=== PATIENT | female | born 1965 | race Caucasian/White ===

== ENCOUNTER 2024-10-07 20:33 | Observation (INO) ==
--- NOTE | 2024-10-07 20:56 | Emergency Department Note ---
HPI - Chest Pain General Chief Complaint: SOB -Shortness of Breath Stated Complaint: SHORTNESS OF BREATH Time Seen by Provider: 10/07/24 20:35 Source: patient Mode of arrival: ambulance Limitations: no limitations History of Present Illness HPI narrative: 59-year-old female presents to the ED this evening, via EMS, with a 2- day history of chest pain and shortness of breath. Pain is described as 8 out o f 10 on pain scale, constant, "feels like an elephant sitting on my chest", further described as stabbing, throbbing and pressure. Patient states her pain is worse when laying down and when stressed, better with nothing. Patient states she was out of town in [place] visiting friends when the pain started, but states she did not want a go to the hospital there. Associated symptoms include nausea and headache. Patient denies vomiting, diaphoresis, diarrhea, body aches, cough, nasal congestion, sore throat, abdominal pain, urinary complaints. MD complaint: Reports chest pain Pertinent past history: Reports other (CHF) Onset (ago): day(s) (2) Timing of current episode: Reports constant and increasing Prior episodes: Yes Onset: Reports during rest Pain location: Reports substernal and left chest Pain radiation: Reports none Severity: moderate-severe Context: Reports recent travel ([place], returned today); Denies recent illness, recent surgery, recent immobilization, trauma/injury, new medications, history of DVT/PE or non compliance with medication Associated symptoms: Reports nausea and dyspnea; Denies vomiting, diaphoresis, palpitations, fever, cough or leg swelling Treatment prior to arrival: Reports none Risk Factors Coronary artery disease risk factors: Reports diabetes and hypertension Thoracic aortic dissection risk factors: Reports none Pulmonary embolism risk factors: Reports none Related Data On Oral Contraceptives: No Home Medications Medication Instructions Recorded Confirmed carvedilol 6.25 mg tablet 6.25 mg PO Q12H 07/25/24 08/25/24 hydroxyzine HCl 50 mg tablet 50 mg PO BEDTIME PRN sleep 07/25/24 08/25/24 insulin lispro 100 unit/mL 5 unit subcut TID 07/25/24 08/25/24 subcutaneous cartridge (Humalog U-100 Insulin) losartan 100 mg tablet 100 mg PO DAILY 07/25/24 08/25/24 omeprazole 40 mg capsule,delayed 40 mg PO DAILY 07/25/24 08/25/24 release spironolactone 25 mg tablet 25 mg PO Q12H 07/25/24 08/25/24 Previous Rx's Medication Instructions Recorded amlodipine 10 mg tablet (Norvasc) 10 mg PO BEDTIME htn #30 tabs 07/28/24 hydralazine 25 mg tablet 25 mg PO BID htn #60 tabs 07/28/24 Allergies Allergy/AdvReac Type Severity Reaction Status Date / Time semaglutide (From Ozempic) Allergy Mild Verified 10/07/24 21:25 codeine Allergy Unknown Verified 08/25/24 22:20 diazepam (From Valium) Allergy Unknown Verified 08/25/24 22:20 fentanyl Allergy Unknown Verified 08/25/24 22:20 meperidine (From Demerol) Allergy Unknown Verified 08/25/24 22:20 metformin Allergy Unknown Verified 08/25/24 22:20 Sulfa (Sulfonamide Allergy Unknown Verified 08/25/24 22:20 Antibiotics) Review of Systems Status of ROS 10 or more systems reviewed and unremark able except as noted in history and below Constitutional Reports: fatigue; Denies: fever or chills Eyes Denies: change in vision, eye discomfort or eye discharge Ears, nose, mouth, and throat Denies: throat pain, neck pain, throat swelling, difficulty swallowing, hoarseness, ear pain or nasal congestion Cardiovascular Reports: chest pain, swelling of feet/ankles, shortness of breath with exertion and shortness of breath when lying down; Denies: palpitations, edema or lightheadedness Respiratory Reports: shortness of breath; Denies: cough, wheezing, pain on inspiration or chest congestion Gastrointestinal Reports: nausea; Denies: abdominal pain, vomiting, diarrhea or blood in stool Genitourinary Denies: painful urination, urinary frequency, urinary urgency, blood in urine, difficulty voiding, decreased urine ouput or pelvic pain Musculoskeletal Denies: back pain, neck pain, extremity pain, extremity swelling or limited range of motion Integumentary/Breast Denies: rash, itching, changes in skin color or jaundice Neurological Reports: headache; Denies: numbness in extremities, weakness in extremities, lack of coordination, dizziness or difficulty communicating thoughts Psychiatric Reports: anxiety and difficulty concentrating Endocrine Denies: excessive urination or excessive thirst Hematologic/Lymphatic Denies: easy bruising or easy bleeding Allergic/Immunologic Denies: hives, throat swelling, tongue swelling or facial swelling Exam Constitutional: abnormal general appearance (disheveled) and (chronically ill), no apparent distress, abnormal body habitus (overweight), no limitations and alert Vital Signs - 24 hr 10/07/24 20:40 10/07/24 20:40 10/07/24 21:07 Temperature 98.4 F Pulse Rate 75 Respiratory Rate 24 Blood Pressure 242/102 222/83 Pulse Oximetry 99 99 Oxygen Delivery Me thod Room Air Nasal Cannula Oxygen Flow Rate 2 10/07/24 21:29 10/07/24 21:34 10/07/24 22:43 Temperature Pulse Rate Respiratory Rate Blood Pressure 222/84 179/99 234/84 Pulse Oximetry Oxygen Delivery Me thod Oxygen Flow Rate 10/08/24 00:31 Temperature Pulse Rate Respiratory Rate Blood Pressure 217/87 Pulse Oximetry Oxygen Delivery Me thod Oxygen Flow Rate HENMT: normocephalic, head/scalp atraumatic, hearing grossly normal bilaterally, external ears normal, nasal mucous membranes normal, external nose normal, oral mucous membranes normal and oropharynx normal Eyes: PERRL, EOMs intact bilaterally, conjunctivae normal, no scleral icterus, alignment normal and periorbital findings normal Neck/C-Spine: visual inspection normal, trachea midline, cervical spine nontender, cervical full ROM noted and supple Lymph: no lymphadenopathy noted Chest: inspection of chest normal and palpation of chest normal Respiratory: breath sounds equal bilaterally, normal respiratory effort, auscultation abnormal (diminished breath sound) (bilateral bases), wheezing noted and use of accessory muscles noted Cardiovascular: normal heart rate noted and regular rhythm noted Gastrointestinal: abdomen normal to inspection, abdomen soft to palpation, no ntender to palpation, nondistended, normoactive bowel sounds, no hepatosplenomegaly and no masses Genitourinary: no CVA tenderness and bladder normal to palpation Back/Pelvis: spine normal to inspection, no thoracic spine tenderness, no lumbar spine tenderness, thoracic spine ROM normal and lumbar spine ROM normal Extremities: abnormal to inspection (+2 bilateral pitting edema), normal to palpation, no tenderness, full ROM and no deformity Neurology: no movement abnormality noted, no focal motor deficit noted, no sensory deficits noted, gait normal, speech normal, coordination normal and GCS normal Psychiatry: mental status grossly normal, oriented x3, thought process normal, cooperative and affect normal Skin: skin color normal, no rash, no ecchymosis noted, no lacerations, skin turgor normal and no jaundice Course Vital Signs Vital signs: Vital Signs Temperature 98.4 F 10/07/24 20:40 Pulse Rate 75 10/07/24 20:40 Respiratory Rate 24 10/07/24 20:40 Blood Pressure 242/102 10/07/24 20:40 Pulse Oximetry 99 10/07/24 20:40 Oxygen Delivery Method Room Air 10/07/24 20:40 Oxygen Flow Rate 2 10/07/24 20:40 Temperature 98.4 F 10/07/24 20:40 Pulse Rate 75 10/07/24 20:40 Respiratory Rate 24 10/07/24 20:40 Blood Pressure 217/87 10/08/24 00:31 Pulse Oximetry 99 10/07/24 20:40 Oxygen Delivery Method Nasal Cannula 10/07/24 20:40 Oxygen Flow Rate 2 10/07/24 20:40 MDM - Chest Pain MDM Narrative Medical decision making narrative: CBC within normal limits except for RBC 3.9L, hemoglobin 10.8 L, hematocrit 30 2.4L, MCH 20 7.5L, RDW 15.4 H. CMP is within normal limits except for BUN is 34H, creatinine 2.2H, EGFR 20 5.2L, glucose 3 77H, albumin 2.0L. Magnesium is low at 1.7L. Phos is within normal limits at 3.8.Lipase is within normal limits. BNP is elevated at 390 6.0H. Initial CPK and troponin are 82 and 14.10 respectively (within normal limits). 3-hour repeat CPK and troponin are 92 and 18.60 respectively (within normal limits). D-dimer is elevated at 717H (likely related to pt's CKD). Urinalysis is within normal limits except for 3+ protein, 4+ glucose, trace occult blood, 5-10 RBCs, few amorphous sediment. Urine drug screen is negative. CXR - no acute cardiopulmonary process. EKG is without evidence of acute ischemia. While in ED, patient received 324 mg p.o. aspirin, 4 mg IV morphine, 4 mg IV Zofran, 3 doses of 0.4 mg sublingual nitro, 40 mg IV Lasix, 2 doses of hydralazine 10 mg IV and 1 inch Nitropaste. BP still remains elevated with SBP > 200. CP has improved form 8 to 3. I have discussed the clinical case, including pertinent positives and negatives with Rashida (utilization review), and the need for further testing/observation in the inpatient arena. I have made the patient aware of the current disposition plan and she is in agreement. Will admit to observation status for hypertensive crisis, chest pain, dyspnea, anemia, nausea, headache, diabetes with hyp erglycemia, elevated D-dimer (likely related to patient's chronic kidney disease) and hypomagnesemia. Differential Diagnosis Differential diagnosis: Likely stable angina, unstable angina pectoris, atypical chest pain, st elevation myocardial infarction, costochondritis, chest pain, biliary colic and other (CHF, pneumonia) Medical Records Data Attestation: I reviewed the patient's medical records. Lab Data Attestation: I reviewed the patient's lab results. Labs: Lab Results 10/07/24 10/07/24 10/08/24 Range/Units 21:12 21:25 00:30 WBC 8.1 (4.3-9.3) K/uL RBC 3.9 L (4.00-5.50) M/uL Hgb 10.8 L (12.5-15.8) gm/dL Hct 32.4 L (35.9-46.7) % MCV 82.6 (81.0-93.7) fl MCH 27.5 L (27.6-32.2) pg MCHC 33.3 (33.1-35.3) g/dl RDW 15.4 H (11.4-14.2) % Plt Count 231 (152-353) K/uL MPV 9.1 (6.9-10.8) fl Gran % 69.6 (47.8-71.3) % Lymph % (Auto) 22.8 (20.0-43.0) % [place] % (Auto) 5.6 (3.6-9.8) % Eos % (Auto) 1.4 (0.4-2.8) % Baso % (Auto) 0.6 (0.1-0.85) Lymph # (Auto) 1.8 (1.1-3.1) [place] # (Auto) 0.5 L (1.1-3.1) Eos # (Auto) 0.1 (0.0-0.2) Baso # (Auto) 0.1 (0.0-0.1) Absolute Gran (auto) 5.6 (2.3-6.0) D-Dimer 717 H (100-600) ng/mL Sodium 137 (136-145) mmol/L Potassium 4.4 (3.6-5.2) mmol/L Chloride 100.0 (98-107) mmol/L Carbon Dioxide 28 (21-32) mmol/L Anion Gap 9.0 (4-14) mEq/L BUN 34 H (7-18) mg/dL Creatinine 2.2 H (0.6-1.3) mg/dL Estimated GFR 25.2 (>59.9) Glucose 377 H (70-110) mg/dL Calcium 8.5 (8.5-10.1) mg/dL Phosphorus 3.8 (2.5-4.9) mg/dL Magnesium 1.7 L (1.8-2.4) mg/dL Total Bilirubin 0.24 (0.0-1.0) mg/dL AST 8 L (15-37) U/L ALT 14 L (30-65) U/L Alkaline Phosphatase 57 (50-136) U/L Total Creatine Kinase 82 92 (26-192) U/L Troponin I High Sens 14.10 18.60 (4.0-60.4) ng/L B-Natriuretic Peptide 396.0 H (0-100) pg/mL Total Protein 6.4 (6.4-8.2) g/dL Albumin 2.0 L (3.4-5.0) g/dL Lipase 61.0 (16.0-77.0) U/L Urine Color Yellow (STRAW/YELL.) Urine Appearance Clear (CLEAR) Ur Specific [place] 1.015 (1.001-1.035) Urine Protein 3+ (NEGATIVE) Urine Glucose (UA) 4+ (NORMAL) Urine Ketones Negative (NEGATIVE) Urine Occult Blood Trace (NEG - TRACE) Urine Nitrite Negative (NEGATIVE) Urine Bilirubin Negative (NEGATIVE) Urine Urobilinogen Normal (NORMAL) Ur Leukocyte Esterase Negative (NEGATIVE) Urine RBC 5 - 10 (0 - 5) Urine WBC Negative ( 0 - 5) Ur Epithelial Cells Rare (Few/HPF) Amorphous Sediment Few (Negative) Urine Bacteria Negative (Negative) Urine Mucus Negative (Negative) Urine Trichomonas Negative (Negative) Urine Yeast Negative (Negative) Fluid pH 8.0 (5 - 9) Urine Opiates Screen Neg. (NEGATIVE) Urine Methadone Screen Neg. (NEGATIVE) Barbiturate Screen Neg. (NEGATIVE) Ur Phencyclidine Scrn Neg. (NEGATIVE) Amphetamines Screen Neg. (NEGATIVE) U Benzodiazepines Scrn Neg. (NEGATIVE) Urine Cocaine Screen Neg. (NEGATIVE) U Marijuana (THC) Screen Neg. (NEGATIVE) Imaging Data Imaging ordered: Chest x-ray Attestation: I personally reviewed and interpreted this imaging study as follows: My impression: No acute cardiopulmonary process ECG Data Attestation: I personally reviewed and interpreted this ECG as follows: ECG interpretation date: 10/07/24 ECG interpretation time: 20:45 Prior ECG tracings: not available for review Interpretation: Normal sinus rhythm Rate 74 RR 812 Normal P waves Normal ELISEO Left ventricular hypertrophy Anterior Q waves, possibly due to left ventricular hypertrophy, Nonspecific ST-T wave changes Critical Care Time Critical Care Time Total Critical Care Time: 80 Attestation: Chest pain and dyspnea workup to include chest x-ray, EKG, CBC, CMP, lipase, initial and repeat CPK and troponin, BNP, D-dimer, UA, urine drug screen. While patient in ED she received 324 mg p.o. aspirin, 4 mg IV morphine, 4 mg IV Zofran, 3 doses of 0.4 sublingual nitro, 40 mg IV Lasix, 2 doses of hydralazine 10 mg IV and 1in nitro paste. Arrangement for admission for hypertensive crisis as blood pressure still remains elevated at 203/69 with a heart rate of 73. Multiple updates with patient. Discharge Plan Discharge Patient Disposition: Admitted As Observation Condition: Improved Chief Complaint: SOB -Shortness of Breath Clinical Impression: Hypertensive crisis, Anemia, Hypomagnesemia, Chest pain, Acute dyspnea, Nausea, Headache, Diabetes mellitus with hyperglycemia, Elevated d-dimer, Chronic kidney disease Prescriptions: No Action losartan 100 mg tablet 100 mg PO DAILY Patient Comments: TAKE 1 TABLET BY MOUTH ONCE A DAY carvedilol 6.25 mg tablet 6.25 mg PO Q12H Patient Comments: TAKE 1 TABLET BY MOUTH TWICE DAILY hydroxyzine HCl 50 mg tablet 50 mg PO BEDTIME PRN (Reason: sleep) Patient Comments: TAKE 1 TABLET BY MOUTH DAILY AT BEDTIME NEEDED FOR SLEEP omeprazole 40 mg capsule,delayed release(/EC) 40 mg PO DAILY Patient Comments: TAKE 1 CAPSULE BY MOUTH DAILY 30 MINUTES BEFORE BREAKFAST spironolactone 25 mg tablet 25 mg PO Q12H Patient Comments: TAKE 1 TABLET BY MOUTH TWICE DAILY Humalog U-100 Insulin 100 unit/mL cartridge 5 unit subcut TID Rx Instructions: INJECT 5 UNITS BEFORE MEALS THREE TIMES DAILY amlodipine [Norvasc] 10 mg tablet 10 mg PO BEDTIME Qty: 30 0RF hydralazine 25 mg tablet 25 mg PO BID Qty: 60 0RF Print Language: Pashto Referrals: [facility] [Other] Time of Disposition: 02:00 [facility] Medical History Insomnia GERD (gastroesophageal reflux disease) Elevated d-dimer Chest pain Acute worsening of stage 4 chronic kidney disease CHF (congestive heart failure), NYHA class II Pulmonary HTN Costochondritis Hypertensive urgency CHF (congestive heart failure) Anxiety Depression Hypertension Diabetes mellitus Surgical History History of placement of ear tubes H/O neck surgery History of tonsillectomy History of Social History Smoking status: never smoker Within the past year, how often did you have a drink containing alcohol: never Within the past year, how often did you have six or more drinks on one occasion: never Score interpretation: A score less than 3 is consistent with normal alcohol consumption. Non-prescribed substance use: denies use What is your current living situation: I presently have a place to live Problems where you live: no known problems In the past 12 months, utilities in danger of being shut off: no In past 12 months, lack of transportation kept you from medical appts, meetings, work, or getting things needed for daily living: No How hard is it for you to pay for the very basics like food, housing, medical care, and heating: decline to answer Past 12 mos, fear food will run out before able to buy more: never true In past 12 months, food didn't last until money to buy more: never true Are you following a diet prescribed by a doctor: No Are you following a special diet: No Do you want help finding or keeping work or a job: I do not need or want help Known occupational exposures/hazards: No Highest level of school completed/degree received: decline to answer Do you want help with school or training: No How many days of moderate to strenuous exercise, like a brisk walk, did you do in the last 7 days: decline to answer Caffeine: No How often does anyone, including family, friends and others, physically hurt you : decline to answer How often does anyone, including family, friends and others, insult or talk down to you: decline to answer How often does anyone, including family, friends and others, threaten you with harm: decline to answer How often does anyone, including family, friends and others, scream or curse at you: decline to answer Firearms in home: declined to answer Do you need help with ADLs: I don't need any help Due to a physical, mental, or emotional condition, do you have difficulty doing errands alone such as visiting a doctor's office or shopping: No Little interest or pleasure in doing things: not at all Feeling down, depressed, or hopeless: not at all Feel stressed/tense/nervous/anxious/difficulty sleeping: not at all Due to disability, difficulty making decisions: No Do you think of yourself as: straight/heterosexual Gender Identity: female Are you currently sexually active: No service: No
[2024-10-07] MEDS ORDERED: NITROGLYCERIN 0.4 MG TAB.SUBL SL ONE (21:06)
[2024-10-07] MEDS: NITROGLYCERIN 0.4 MG TAB.SUBL SL ONE ×3 (21:07→22:43)
[2024-10-07] MEDS: ASPIRIN 81 MG TAB.CHEW PO ONE (21:12)
[2024-10-07] MEDS: ONDANSETRON HCL/PF 4 MG/2 ML VIAL IVP STA (21:12)
[2024-10-07] MEDS: MORPHINE SULFATE 4 MG/ML CARTRIDGE IV STA (21:13)
[2024-10-07 21:27] LABS: Basophils #(Absolute) Auto 0.1 (0.0-0.1); Basophils%(Percent) Auto 0.6 (0.1-0.85); Eosinophils#(Absolute)Auto 0.1 (0.0-0.2); Eosinophils%(Percent) Auto 1.4 % (0.4-2.8); Granulocytes % - Auto 69.6 % (47.8-71.3); Granulocytes#(Absolute)- Auto 5.6 (2.3-6.0); Hematocrit 32.4 % (35.9-46.7); Mean Corpuscular Volume 82.6 fl (81.0-93.7); Monocytes #(Absolute)- Auto 0.5 (1.1-3.1); Monocytes %(Percent)- Auto 5.6 % (3.6-9.8); Platelet Count 231 K/uL (152-353); White Blood Count 8.1 K/uL (4.3-9.3)
[2024-10-07] MEDS ORDERED: FUROSEMIDE 40 MG/4 ML VIAL ONE (21:33)
[2024-10-07] MEDS: FUROSEMIDE 20 MG/2 ML VIAL IV ONE (21:34)
[2024-10-07 21:43] LABS: Potassium 4.4 mmol/L (3.6-5.2)
[2024-10-07 22:17] LABS: Amphetamine Screen Urine NEG. (NEGATIVE); Cannabinoid Screen Urine NEG. (NEGATIVE); Cocaine Screen Urine NEG. (NEGATIVE); Methadone Screen Urine NEG. (NEGATIVE); Opiate Screen Urine NEG. (NEGATIVE)
[2024-10-07 22:18] LABS: Specific Gravity Urine 1.015 (1.001-1.035); Urine Appearance CLEAR (CLEAR); Urine Blood TRACE (NEG - TRACE); Urine Color YELLOW (STRAW/YELL.); Urine Urobilinogen Normal (NORMAL)
[2024-10-07 22:19] LABS: Urine Amorphous Sediment Few (Negative); Urine Yeast Negative (Negative)
[2024-10-08] MEDS ORDERED: HYDRALAZINE HCL 20 MG/ML VIAL ONE (00:31)
[2024-10-08] MEDS: HYDRALAZINE HCL 20 MG/ML VIAL IVP ONE ×2 (00:31→02:05)
[2024-10-08] MEDS ORDERED: GI COCKTAIL 30 ML SOLUTION ONE (01:36)
[2024-10-08] MEDS: GI COCKTAIL 30 ML SOLUTION PO STA (01:36)
[2024-10-08] MEDS: NITROGLYCERIN 1 GM OINT...G. TD ONE (02:05)
[2024-10-08] MEDS ORDERED: PANTOPRAZOLE SODIUM 40 MG VIAL ONE (03:03)
[2024-10-08] MEDS: PANTOPRAZOLE SODIUM 40 MG VIAL IVP STA (03:15)
[2024-10-08] MEDS ORDERED: HYDRALAZINE HCL 20 MG/ML VIAL IVP PRN (04:11)
[2024-10-08] MEDS ORDERED: SPIRONOLACTONE 25 MG PO SCH (04:11)
[2024-10-08] MEDS ORDERED: MAGNESIUM, ALUMINUM HYDROXIDE 30 ML ORAL.SUSP PO PRN (04:11)
[2024-10-08] MEDS ORDERED: bisacodyL 10 MG SUPP.RECT PR PRN (04:11)
[2024-10-08] MEDS ORDERED: ONDANSETRON HCL/PF 4 MG/2 ML VIAL INJ PRN (04:11)
--- NOTE | 2024-10-08 05:40 | Event Note ---
Event Note Event Note: 0500 - NUHA Cuellar called and stated pt was having heart burn and requested something additional to the GI cocktail and Protonnix IV she rec'd in the ED. One time dose of Maalox ordered.
[2024-10-08] MEDS: carvediloL 6.25 MG TABLET PO SCH (05:57)
[2024-10-08] MEDS: ASPIRIN 81 MG TAB.CHEW PO ONE (05:57)
[2024-10-08] MEDS: MAGNESIUM SULFATE 1 GM/2 ML 3 GM in 0.9 % SODIUM CHLORIDE 100ML 100 ML IV ONE (05:57)
[2024-10-08] MEDS: MAGNESIUM, ALUMINUM HYDROXIDE 30 ML ORAL.SUSP PO STA (05:58)
[2024-10-08] MEDS ORDERED: ENOXAPARIN SODIUM 40 MG/0.4 ML SYRINGE SQ SCH (09:00)
[2024-10-08] MEDS ORDERED: LOSARTAN 100 MG PO SCH (09:00)
[2024-10-08] MEDS: SPIRONOLACTONE 50 MG TABLET PO SCH (10:05)
[2024-10-08] MEDS: LOSARTAN POTASSIUM 50 MG TABLET PO SCH (10:06)
[2024-10-08] MEDS: ENOXAPARIN SODIUM 40 MG/0.4 ML SYRINGE SUBQ SCH (10:07)
[2024-10-08] MEDS: DILTIAZEM HCL 120 MG PO SCH (10:40)
[2024-10-08] MEDS: FUROSEMIDE 20 MG TABLET PO SCH (10:40)
[2024-10-08] MEDS ORDERED: ALBUMIN HUMAN 25% 100 ML IV SCH (11:15)
[2024-10-08] MEDS: ASPIRIN 81 MG TAB.CHEW ONE (11:48)
[2024-10-08] MEDS: ALBUMIN HUMAN 25% 100 ML IV SCH (12:51)
[2024-10-08] MEDS: ACETAMINOPHEN 500 MG TABLET PO PRN ×2 (14:37→20:33)
[2024-10-08] MEDS ORDERED: KETOROLAC 30 MG/ML INJ VIAL IVP PRN (15:33)
[2024-10-08] MEDS: PANTOPRAZOLE SODIUM 40 MG TABLET.DR PO SCH (20:33)
[2024-10-09 06:04] LABS: Basophils%(Percent) Auto 0.6 (0.1-0.85); Eosinophils#(Absolute)Auto 0.1 (0.0-0.2); Eosinophils%(Percent) Auto 1.9 % (0.4-2.8); Granulocytes % - Auto 64.3 % (47.8-71.3); Granulocytes#(Absolute)- Auto 4.9 (2.3-6.0); Hematocrit 26.6 % (35.9-46.7); Mean Corpuscular Volume 82.4 fl (81.0-93.7); Monocytes #(Absolute)- Auto 0.5 (1.1-3.1); Monocytes %(Percent)- Auto 6.5 % (3.6-9.8); Platelet Count 197 K/uL (152-353); White Blood Count 7.6 K/uL (4.3-9.3)
[2024-10-09 06:15] LABS: Potassium 4.7 mmol/L (3.6-5.2)
[2024-10-09 08:35] VITALS: BP 171/67; PULSE 71; RESP 19; TEMP 98.5
[2024-10-09] MEDS: carvediloL 6.25 MG TABLET PO SCH (09:45)
[2024-10-09] MEDS: PANTOPRAZOLE SODIUM 40 MG TABLET.DR PO ONE (09:46)
[2024-10-09] MEDS ORDERED: ENOXAPARIN SODIUM 30 MG/0.3 ML SYRINGE SUBQ SCH (12:00)
--- NOTE | 2024-10-09 13:58 | Short Stay Summary ---
H&P: HPI History of Present Illness Chief complaint: SHORTNESS OF BREATH Narrative: 59-year-old female presents to the ED this evening, via EMS, with a 2- day history of chest pain and shortness of breath. Pain is described as 8 out of 10 on pain scale, constant, "feels like an elephant sitting on my chest", further described as stabbing, throbbing and pressure. Patient states her pain is worse when laying down and when stressed, better with nothing. Patient states she was out of town in [place] visiting friends when the pain started, but states she did not want a go to the hospital there. Associated symptoms include nausea and headache. Patient denies vomiting, diaphoresis, diarrhea, body aches, cough, nasal congestion, sore throat, abdominal pain, urinary complaints. Admitted to med/surg for observation and treatment. Review of Systems Status of ROS 10 or more systems reviewed and unremark able except as noted in history and below Constitutional Reports: fatigue; Denies: fever or chills Eyes Denies: change in vision, eye discomfort or eye discharge Ears, nose, mouth, and throat Denies: throat pain, neck pain, throat swelling, difficulty swallowing, hoarseness, ear pain or nasal congestion Cardiovascular Reports: chest pain, swelling of feet/ankles, shortness of breath with exertion and shortness of breath when lying down; Denies: palpitations, edema or lightheadedness Respiratory Reports: shortness of breath; Denies: cough, wheezing, pain on inspiration or chest congestion Gastrointestinal Reports: nausea; Denies: abdominal pain, vomiting, diarrhea, difficulty swallowing or blood in stool Genitourinary Denies: painful urination, urinary frequency, urinary urgency, blood in urine, difficulty voiding, decreased urine ouput or pelvic pain Musculoskeletal Denies: back pain, neck pain, extremity pain, extremity swelling or limited range of motion Integumentary/Breast Denies: rash, itching, changes in skin color or jaundice Neurological Reports: headache; Denies: numbness in extremities, weakness in extremities, lack of coordination, dizziness or difficulty communicating thoughts Psychiatric Reports: anxiety and difficulty concentrating Endocrine Reports: fatigue; Denies: excessive urination or excessive thirst Hematologic/Lymphatic Denies: easy bruising or easy bleeding Allergic/Immunologic Denies: hives, throat swelling, tongue swelling, facial swelling or wheezing [facility] Medical History (Updated 10/09/24 @ 10:36 by Inés Tan DO) Insomnia GERD (gastroesophageal reflux disease) Elevated d-dimer Chest pain Acute worsening of stage 4 chronic kidney disease CHF (congestive heart failure), NYHA class II Pulmonary HTN Costochondritis Hypertensive urgency CHF (congestive heart failure) Anxiety Depression Hypertension Diabetes mellitus Surgical History History of placement of ear tubes H/O neck surgery History of tonsillectomy History of Social History Smoking status: never smoker Within the past year, how often did you have a drink containing alcohol: never Within the past year, how often did you have six or more drinks on one occasion: never Score interpretation: A score less than 3 is consistent with normal alcohol consumption. Non-prescribed substance use: denies use What is your current living situation: I presently have a place to live Problems where you live: no known problems In the past 12 months, utilities in danger of being shut off: no In past 12 months, lack of transportation kept you from medical appts, meetings, work, or getting things needed for daily living: No How hard is it for you to pay for the very basics like food, housing, medical care, and heating: decline to answer Past 12 mos, fear food will run out before able to buy more: never true In past 12 months, food didn't last until money to buy more: never true Are you following a diet prescribed by a doctor: No Are you following a special diet: No Do you want help finding or keeping work or a job: I do not need or want help Known occupational exposures/hazards: No Highest level of school completed/degree received: College Do you want help with school or training: No How many days of moderate to strenuous exercise, like a brisk walk, did you do in the last 7 days: decline to answer Caffeine: No How often does anyone, including family, friends and others, physically hurt you : decline to answer How often does anyone, including family, friends and others, insult or talk down to you: decline to answer How often does anyone, including family, friends and others, threaten you with harm: decline to answer How often does anyone, including family, friends and others, scream or curse at you: decline to answer Firearms in home: declined to answer Do you need help with ADLs: I don't need any help Due to a physical, mental, or emotional condition, do you have difficulty doing errands alone such as visiting a doctor's office or shopping: No Little interest or pleasure in doing things: not at all Feeling down, depressed, or hopeless: not at all Feel stressed/tense/nervous/anxious/difficulty sleeping: not at all Due to disability, difficulty making decisions: No Do you think of yourself as: straight/heterosexual Gender Identity: female Are you currently sexually active: No service: No Meds Home Medications and Allergies Home Medications Medication Instructions Recorded Confirmed Type carvedilol 6.25 mg tablet 6.25 mg PO Q12H 07/25/24 10/08/24 History hydroxyzine HCl 50 mg tablet 50 mg PO BEDTIME PRN sleep 07/25/24 10/08/24 History insulin lispro 100 unit/mL 5 unit subcut TID 07/25/24 10/08/24 History subcutaneous cartridge (Humalog U-100 Insulin) losartan 100 mg tablet 100 mg PO DAILY 07/25/24 10/08/24 History omeprazole 40 mg capsule,delayed 40 mg PO DAILY 07/25/24 10/08/24 History release spironolactone 25 mg tablet 25 mg PO Q12H 07/25/24 10/08/24 History amlodipine 10 mg tablet (Norvasc) 10 mg PO BEDTIME htn #30 tabs 07/28/24 10/08/24 Rx hydralazine 25 mg tablet 25 mg PO BID htn #60 tabs 07/28/24 10/08/24 Rx famotidine 20 mg tablet (Pepcid) 20 mg PO BID gerd #14 tabs 10/09/24 Rx Allergies Allergy/AdvReac Type Severity Reaction Status Date / Time semaglutide (From Ozempic) Allergy Mild Verified 10/08/24 04:54 codeine Allergy Unknown Verified 10/08/24 04:54 diazepam (From Valium) Allergy Unknown Verified 10/08/24 04:54 fentanyl Allergy Unknown Verified 10/08/24 04:54 meperidine (From Demerol) Allergy Unknown Verified 10/08/24 04:54 metformin Allergy Unknown Verified 10/08/24 04:54 Sulfa (Sulfonamide Allergy Unknown Verified 10/08/24 04:54 Antibiotics) Exam Exam: Patient in myers's position upon entering room for exam. Complained of a headache, however, she states she "feels better" than yesterday. Constitutional: abnormal general appearance (disheveled) and (chronically ill), no apparent distress, abnormal body habitus (obese), no limitations and alert Vital Signs - 24 hr 10/08/24 15:57 10/08/24 20:00 10/09/24 06:56 Temperature 97.6 F 98.6 F 98.1 F Pulse Rate Pulse Rate [Left R adial] 65 58 L 63 Respiratory Rate 19 20 20 Blood Pressure Blood Pressure [Le ft Arm] 126/81 104/59 148/51 Pulse Oximetry 97 98 99 Oxygen Delivery Me thod Room Air Room Air Room Air 10/09/24 08:00 10/09/24 09:45 10/09/24 09:46 Temperature 98.5 F Pulse Rate 71 Pulse Rate [Left R adial] 71 Respiratory Rate 19 Blood Pressure 171/67 171/67 Blood Pressure [Le ft Arm] 171/67 Pulse Oximetry 98 Oxygen Delivery Me thod Room Air 10/09/24 09:47 10/09/24 09:47 Temperature Pulse Rate 71 Pulse Rate [Left R adial] Respiratory Rate Blood Pressure 171/67 171/67 Blood Pressure [Le ft Arm] Pulse Oximetry Oxygen Delivery Me thod HENMT: normocephalic, head/scalp atraumatic, hearing grossly normal bilaterally, external ears normal, nasal mucous membranes normal, external nose normal, oral mucous membranes normal and oropharynx normal Eyes: PERRL, EOMs intact bilaterally, conjunctivae normal, no scleral icterus, alignment normal and periorbital findings normal Neck/C-Spine: visual inspection normal, trachea midline, cervical spine nontender, cervical full ROM noted and supple Lymph: no lymphadenopathy noted Chest: inspection of chest normal and palpation of chest normal Respiratory: breath sounds equal bilaterally and normal respiratory effort Cardiovascular: normal heart rate noted and regular rhythm noted Gastrointestinal: abdomen normal to inspection, abdomen soft to palpation, nontender to palpation, nondistended, normoactive bowel sounds, no hepatosplenomegaly and no masses Genitourinary: no CVA tenderness and bladder normal to palpation Back/Pelvis: spine normal to inspection, no thoracic spine tenderness, no lumbar spine tenderness, thoracic spine ROM normal and lumbar spine ROM normal Extremities: normal to inspection, normal to palpation, no tenderness, full ROM and no deformity Neurology: no movement abnormality noted, no focal motor deficit noted, no sensory deficits noted, gait normal, speech normal, coordination normal and GCS normal Psychiatry: mental status grossly normal, oriented x3, thought process normal, cooperative and affect normal Skin: skin color normal, no rash, no ecchymosis noted, no lacerations, skin turgor normal and no jaundice Assessment and Plan Assessment and Plan (1) Cardiomegaly: Code(s): I51.7 - Cardiomegaly (2) Hypertensive crisis: Code(s): I16.9 - Hypertensive crisis, unspecified (3) Acute worsening of stage 4 chronic kidney disease: Code(s): N18.4 - Chronic kidney disease, stage 4 (severe) (4) Diabetes mellitus: Qualifiers: Diabetes mellitus type: type 2 Diabetes mellitus rn or lvn insulin use: with rn or lvn use Diabetes mellitus complication status: without complication Qualified Code(s): E11.9 - Type 2 diabetes mellitus without complications; 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 Code(s): E11.9 - Type 2 diabetes mellitus without complications (5) GERD (gastroesophageal reflux disease): Qualifiers: Esophagitis presence: esophagitis presence not specified Qualified Code(s): K21.9 - Gastro-esophageal reflux disease without esophagitis Code(s): K21.9 - Gastro-esophageal reflux disease without esophagitis Plan Carvedilol 6.25 mg PO Q12H Acetaminophen 500 mg PO Q6H PRN Magnesium Hydroxide 30 ml PO Daily PRN Bisacodyl 10 mg GA Daily PRN Ondansetron 4 mg INJ Q4H PRN Insulin Regular sliding scale SUBQ PRN Hydralazine Hcl 10 mg IVP Q2H PRN Furosemide 60 mg PO Daily Diltiazem Hcl 120 mg PO Daily Pantoprazole Sodium 40 mg PO BID Losartan Potassium 100 mg PO Daily Spironolactone 25 mg PO Q12H Enoxaparin Sodium 40 mg SUBQ Daily Albumin 100 mls @ 60 mls/hr IV ONCE Ketorolac Tromethamine 15 mg IVP Q6H PRN Acetaminophen 1,000 mg PO Q6H PRN Patient acute symptoms and problems have resolved and/or returning to baseline. Results Labs Labs: CBC WBC 7.6 K/uL (4.3-9.3) 10/09/24 05:20 RBC 3.2 M/uL (4.00-5.50) L 10/09/24 05:20 Hgb 9.2 gm/dL (12.5-15.8) L 10/09/24 05:20 Hct 26.6 % (35.9-46.7) L 10/09/24 05:20 MCV 82.4 fl (81.0-93.7) 10/09/24 05:20 MCH 28.4 pg (27.6-32.2) 10/09/24 05:20 MCHC 34.4 g/dl (33.1-35.3) 10/09/24 05:20 RDW 15.5 % (11.4-14.2) H 10/09/24 05:20 Plt Count 197 K/uL (152-353) 10/09/24 05:20 MPV 9.1 fl (6.9-10.8) 10/09/24 05:20 Gran % 64.3 % (47.8-71.3) 10/09/24 05:20 Lymph % (Auto) 26.7 % (20.0-43.0) 10/09/24 05:20 Leslie % (Auto) 6.5 % (3.6-9.8) 10/09/24 05:20 Eos % (Auto) 1.9 % (0.4-2.8) 10/09/24 05:20 Baso % (Auto) 0.6 (0.1-0.85) 10/09/24 05:20 Lymph # (Auto) 2.0 (1.1-3.1) 10/09/24 05:20 Leslie # (Auto) 0.5 (1.1-3.1) L 10/09/24 05:20 Eos # (Auto) 0.1 (0.0-0.2) 10/09/24 05:20 Baso # (Auto) 0.0 (0.0-0.1) 10/09/24 05:20 Absolute Gran (auto) 4.9 (2.3-6.0) 10/09/24 05:20 BMP Sodium 136 mmol/L (136-145) 10/09/24 05:20 Potassium 4.7 mmol/L (3.6-5.2) 10/09/24 05:20 Chloride 103.0 mmol/L (98-107) 10/09/24 05:20 Carbon Dioxide 25 mmol/L (21-32) 10/09/24 05:20 Anion Gap 8.0 mEq/L (4-14) 10/09/24 05:20 BUN 40 mg/dL (7-18) H 10/09/24 05:20 Creatinine 2.6 mg/dL (0.6-1.3) H 10/09/24 05:20 Estimated GFR 20.6 (>59.9) 10/09/24 05:20 Glucose 160 mg/dL (70-110) H 10/09/24 05:20 Calcium 8.5 mg/dL (8.5-10.1) 10/09/24 05:20 Phosphorus 5.7 mg/dL (2.5-4.9) H 10/09/24 05:20 Magnesium 2.6 mg/dL (1.8-2.4) H 10/09/24 05:20 Total Bilirubin 0.39 mg/dL (0.0-1.0) 10/09/24 05:20 AST 9 U/L (15-37) L 10/09/24 05:20 ALT 10 U/L (30-65) L 10/09/24 05:20 Alkaline Phosphatase 42 U/L (50-136) L 10/09/24 05:20 Total Protein 5.4 g/dL (6.4-8.2) L 10/09/24 05:20 Albumin 2.2 g/dL (3.4-5.0) L 10/09/24 05:20 Cardiac Enzymes Troponin I High Sens 17.30 ng/L (4.0-60.4) 10/08/24 09:12 Liver Function Total Bilirubin 0.39 mg/dL (0.0-1.0) 10/09/24 05:20 AST 9 U/L (15-37) L 10/09/24 05:20 ALT 10 U/L (30-65) L 10/09/24 05:20 Alkaline Phosphatase 42 U/L (50-136) L 10/09/24 05:20 Total Protein 5.4 g/dL (6.4-8.2) L 10/09/24 05:20 Albumin 2.2 g/dL (3.4-5.0) L 10/09/24 05:20 Urine Urine Color Yellow (STRAW/YELL.) 10/07/24 21:25 Urine Appearance Clear (CLEAR) 10/07/24 21:25 Ur Specific [place] 1.015 (1.001-1.035) 10/07/24 21:25 Urine Protein 3+ (NEGATIVE) 10/07/24 21:25 Urine Glucose (UA) 4+ (NORMAL) 10/07/24 21: Urine Ketones Negative (NEGATIVE) 10/07/24 21: Urine Occult Blood Trace (NEG - TRACE) 10/07/24 21: Urine Nitrite Negative (NEGATIVE) 10/07/24 21: Urine Bilirubin Negative (NEGATIVE) 10/07/24 21: Urine Urobilinogen Normal (NORMAL) 10/07/24 21: Ur Leukocyte Esterase Negative (NEGATIVE) 10/07/24 21:25 Imaging Imaging ordered: Chest x-ray Radiologist's impression: XR CHEST 1V HISTORY: CP, DyspneaCP, Dyspnea; COMPARISON: August 25, 2024 TECHNIQUE: Chest radiographic imaging, AP portable projection, 1 image FINDINGS: No cardiomegaly. No focal airspace disease. No pleural effusion. No pneumothorax. No acute osseous abnormality. IMPRESSION: No imaging findings of acute cardiopulmonary disease. DS: Providers Provider Date of admission: 10/08/24 02:31 Primary care physician: ALFREDITO TUTTLE Admitting clinician: Dipti Nascimento Attending physician on admission: Inés Tan Attending physician on discharge: Inés Tan Discharging clinician: Inés Tan Anticipated date of discharge: 10/09/24 DS: Summary Hospital Course Hospital Course: 59-year-old female presents to the ED this evening, via EMS, with a 2- day history of chest pain and shortness of breath. Pain is described as 8 out of 10 on pain scale, constant, "feels like an elephant sitting on my chest", further described as stabbing, throbbing and pressure. Patient states her pain is worse when laying down and when stressed, better with nothing. Patient states she was out of town in [place] visiting friends when the pain started, but states she did not want a go to the hospital there. Associated symptoms include nausea and headache. Patient denies vomiting, diaphoresis, diarrhea, body aches, cough, nasal congestion, sore throat, abdominal pain, urinary complaints. Admitted to med/surg for observation and treatment. Patient responded well to treatment plan and hospital stay was uneventful. Acute symptoms and problems have been resolved and/or returning to patient's baseline. Patient is ready for discharge home with a follow up appointment for her PCP in 5-7 days for post hospital visit. Patient stated she would like to find a new electrocardiograph operator closer to home, nursing staff provided a list of local cardiologists; she stated she would review the list with a friend and contact them herself through her PCP. Status at Discharge Functional status at discharge: independent ambulation Overall status at discharge: patient is back to baseline Time Spent with Patient Time attestation: Total time spent providing and/or coordinating discharge services: Time spent: greater than 30 minutes Discharge Plan Discharge Disposition: Home, Self-Care Condition: Improved Discharge Medications: New famotidine [Pepcid] 20 mg tablet 20 mg PO BID Qty: 14 0RF Continued losartan 100 mg tablet 100 mg PO DAILY Patient Comments: TAKE 1 TABLET BY MOUTH ONCE A DAY carvedilol 6.25 mg tablet 6.25 mg PO Q12H Patient Comments: TAKE 1 TABLET BY MOUTH TWICE DAILY hydroxyzine HCl 50 mg tablet 50 mg PO BEDTIME PRN (Reason: sleep) Patient Comments: TAKE 1 TABLET BY MOUTH DAILY AT BEDTIME NEEDED FOR SLEEP omeprazole 40 mg capsule,delayed release(DR/EC) 40 mg PO DAILY Patient Comments: TAKE 1 CAPSULE BY MOUTH DAILY 30 MINUTES BEFORE BREAKFAST spironolactone 25 mg tablet 25 mg PO Q12H Patient Comments: TAKE 1 TABLET BY MOUTH TWICE DAILY Humalog U-100 Insulin 100 unit/mL cartridge 5 unit subcut TID Rx Instructions: INJECT 5 UNITS BEFORE MEALS THREE TIMES DAILY amlodipine [Norvasc] 10 mg tablet 10 mg PO BEDTIME Qty: 30 0RF hydralazine 25 mg tablet 25 mg PO BID Qty: 60 0RF Discharge Orders: Discharge Order (Routine); Ordered 10/09/24 Ordered By: Inés Tan Activity: increase activity as tolerated Diet: diabetic diet and low fat, low cholesterol Interventions: Discharge Assessment Last Done: 10/09/24 11:24 MED/SURG & ICU Observation Charge Sheet Last Done: 10/09/24 05:49 Patient Instructions: Dyspnea (DC), Hypertensive Crisis (DC) Activity Restrictions/Additional Instructions: follow up PCP in 1-2 days give list of local if she is interested in closer care. cardiology follow up she was wanting to change cardiology from [place] to a closer electrocardiograph operator document her appt follow up with nephrology as patient states she saw one after her last visit and I need plan and testing from that visit please If chest pain worsens or persists patient can return tho to the ER or [facility]. Forms: Portal/Health Info Access Inst Follow-Ups: ALFREDITO TUTTLE [Other] Discharge Date/Time: 10/09/24 11:45
== END 2024-10-09 11:45 | disposition home or self-care (01) ==
LOC: MS 20:33 → ED 20:33 → MS 10-08 03:40
PROVIDERS: ADMIT Nurse Practitioner Family; ATTEND Family Medicine
DX: R06.02 Shortness of breath; R07.89 Other chest pain; K21.9 Gastro-esophageal reflux disease without esophagitis; N18.4 Chronic kidney disease, stage 4 (severe); R51.9 Headache, unspecified; D64.89 Other specified anemias; Z79.4 Long term (current) use of insulin; I16.9 Hypertensive crisis, unspecified; I51.7 Cardiomegaly; R79.89 Other specified abnormal findings of blood chemistry; E83.42 Hypomagnesemia; R11.0 Nausea; E11.65 Type 2 diabetes mellitus with hyperglycemia